=== PATIENT | male | born 1975 | race Caucasian/White ===

== ENCOUNTER 2018-11-05 13:37 | Emergency (ER) | payer BC, SELFPAY ==
[2018-11-05] MEDS ORDERED: cloNIDine 0.1 MG TAB ONE (14:18)
[2018-11-05 14:33] LABS: #Basophils 0.1 thou/uL (0.0-0.2); #Eosinphils 0.3 thou/uL (0.0-0.7); #Lymphocytes 1.6 thou/uL (1.20-3.40); #Monocytes 0.4 thou/uL (0.11-0.59); #Neutrophils 6.1 thou/uL (1.40-6.50); %Basophils 1.1 % (0.0-1.0); %Eosinophils 3.6 % (0.0-10.0); %Lymphocytes 19.2 % (21.0-51.0); %Neutrophils 71.1 % (42.0-75.0); Hemoglobin 16.7 g/dL (14.0-18.0); Mean Corpuscular HGB CONC 34.6 g/dL (32.0-36.0); Mean Corpuscular Hemoglobin 30.3 pg (27.0-31.0); Mean Corpuscular Volume 87.5 fL (78.0-98.0); Mean Platelet Volume 6.9 fL (7.4-10.4); Platelet Count 219 thou/uL (130-400); RBC Distribution Width 12.7 % (11.5-14.5); White Blood Cell (WBC) Count 8.5 thou/uL (4.8-10.8)
--- NOTE | 2018-11-05 14:48 | RAD ---
TWO VIEW CHEST: INDICATION: Emergency exam, pain and dizziness. FINDINGS: Hypoinflation of the lungs with asymmetric elevation of right hemidiaphragm. There is no lobar conso lidation, effusion, or pneumothorax. Accentuation of the cardiac silhouette and vascular structures due to hypoinflated lungs. IMPRESSION: No focal consolidation. POS: [facility]
[2018-11-05 14:56] LABS: ALT (SGPT) 27 U/L (8-55); AST (SGOT) 19 U/L (5-34); Albumin 3.7 g/dL (3.5-5.0); Alkaline Phosphatase 134 U/L (40-150); Anion Gap 11 mmol/L (10-20); BUN (Urea Nitrogen) 10 mg/dL (8.9-20.6); Bilirubin, Total 0.5 mg/dL (0.2-1.2); Calc. Creatinine Clearance 0 mL/min (70-130); Calcium 9.5 mg/dL (7.8-10.44); Carbon Dioxide 24 mmol/L (22-29); Chloride 99 mmol/L (98-107); Estimated GFR-MDRD Greater than 90; Globulin 3.7 g/dL (2.4-3.5); Glucose 390 mg/dL (70-105); Potassium 3.4 mmol/L (3.5-5.1); Protein, Total 7.4 g/dL (6.0-8.3); Sodium 131 mmol/L (136-145)
[2018-11-05] MEDS ORDERED: diphenhydrAMINE 50 MG/ML VIAL ONE (15:41)
[2018-11-05] MEDS ORDERED: Metoclopramide HCl 10 MG/2 ML VIAL ONE (15:41)
[2018-11-05] MEDS ORDERED: Lisinopril/Hydrochlorothiazide 20/25 mg Tablet PO SCH (16:15)
[2018-11-05] MEDS ORDERED: Ketorolac Tromethamine 30 MG/ML VIAL ONE (16:20)
--- NOTE | 2018-11-05 16:58 | CT ---
HEAD CT WITHOUT CONTRAST: 11/05/18 HISTORY: Headache. Dizziness. COMPARISON: None. FINDINGS: No parenchymal hemorrhage. No extra-axial hematoma. No midline shift. Basilar cisterns are patent. Br ain volume, age appropriate, Cortical flynn-white matter differentiation is preserved. Ventricles and sulci are patent and symmetric. The calvarium is intact. There is an incompletely evaluated hypodensity in the right maxillary sinus which may represent a muc ous retention cyst. There is fullness of the adenoid tonsils and nasopharynx, incompletely evaluated. IMPRESSION: 1. No acute intracranial process. 2. Adenoid tonsil and nasopharyngeal fullness, incompletely evaluated. Directed visualization i s recommended. POS: [facility]
== END 2018-11-05 17:10 | disposition home or self-care (01) ==
LOC: ERS 13:37
DX: I10 Essential (primary) hypertension (principal); E11.65 Type 2 diabetes mellitus with hyperglycemia; F17.210 Nicotine dependence, cigarettes, uncomplicated; G47.30 Sleep apnea, unspecified; Z79.899 Other long term (current) drug therapy; Z79.84 Long term (current) use of oral hypoglycemic drugs
CPT/HCPCS: 36415; 36416; 70450; 71046; 80053; 83880; 85025; 96361; 96374; 96375; J1200; J1885; J2765

== ENCOUNTER 2019-01-29 22:21 | Emergency (ER) | payer OTHER, SELFPAY ==
[2019-01-29] MEDS ORDERED: Ketorolac Tromethamine 30 MG/ML VIAL ONE (22:33)
== END 2019-01-29 23:00 | disposition home or self-care (01) ==
LOC: ERS 22:21
DX: S39.012A Strain of muscle, fascia and tendon of lower back, initial encounter (principal); M62.830 Muscle spasm of back; E11.9 Type 2 diabetes mellitus without complications; I10 Essential (primary) hypertension; F17.210 Nicotine dependence, cigarettes, uncomplicated; Z79.84 Long term (current) use of oral hypoglycemic drugs; X50.9XXA Other and unspecified overexertion or strenuous movements or postures, initial encounter
CPT/HCPCS: 96372; J1885